=== PATIENT | male | born 1995 | race Caucasian/White ===

== ENCOUNTER 2024-04-07 11:36 | Outpatient (CLI) | payer BC, SELFPAY ==
[2024-04-07 13:13] LABS: Strep A DNA Probe* NOT DETECTED (Not Detectd)
== END 2024-04-07 11:37 | disposition home or self-care (01) ==
PROVIDERS: Visit Provider Nurse Practitioner Family
DX: J02.9 Acute pharyngitis, unspecified (principal)
CPT/HCPCS: 85025; 87651